=== PATIENT | male | born 1970 | race Caucasian/White ===

== ENCOUNTER 2024-09-15 07:27 | Day surgery (SDC) | payer BC ==
[2024-09-14 13:20] VITALS: BMI 26.6
[2024-09-15 08:43] VITALS: RESP 18; TEMP 97.8
[2024-09-15 09:12] VITALS: BP 121/64
[2024-09-15 09:13] VITALS: PULSE 69
== END 2024-09-15 09:05 | disposition home or self-care (01) ==
LOC: FASU-ENDO 07:27
PROVIDERS: ATTEND Internal Medicine Gastroenterology
PROC: 0DBL8ZX Excision of Transverse Colon, Via Natural or Artificial Opening Endoscopic, Diagnostic (ICD-10-PCS; principal; 2024-09-15 08:10)
DX: Z12.11 Encounter for screening for malignant neoplasm of colon (principal); D12.3 Benign neoplasm of transverse colon; Z80.0 Family history of malignant neoplasm of digestive organs
CPT/HCPCS: 88305-TC